=== PATIENT | male | born 2000 | race Caucasian/White ===

== ENCOUNTER 2025-07-29 12:14 | Emergency (ER) | payer OTHER ==
[~2025-07-29 12:14] MED LIST: Iopamidol 300 61% 100 ML VIAL FS ONE
[2025-07-29] MEDS ORDERED: Ketorolac Tromethamine 30 MG (1 mL) VIAL ONE (13:33)
[2025-07-29 13:41] LABS: #Basophils Less than 0.03 10x3/uL (0.0-0.2); #Eosinophils 0.05 10x3/uL (0.0-0.5); #Monocytes 0.64 10x3/uL (0.0-1.1); #Neutrophils 4.52 10x3/uL (1.5-8.4); %Basophils 0.3 % (0.0-2.0); %Eosinophils 0.8 % (0.0-6.0); %Lymphocytes 19.4 % (18.0-47.0); %Monocytes 9.8 % (0.0-10.0); %Neutrophils 69.4 % (40.0-75.0); Hematocrit 44.7 % (38.8-50.0); Hemoglobin 15.1 g/dL (13.5-17.5); Mean Corpuscular Hemoglobin 29.8 pg (27.0-33.0); Mean Corpuscular Volume 88.3 fL (81.2-95.1); Platelet Count 226 10x3/uL (150-450); Red Blood Cell (RBC) Count 5.06 10x6/uL (4.32-5.72); White Blood Cell (WBC) Count 6.51 10x3/uL (3.5-10.5)
[2025-07-29 13:55] LABS: ALT (SGPT) 59 U/L (Less than 45); AST (SGOT) 56 U/L (11-34); Albumin 4.2 g/dL (3.1-4.5); Alkaline Phosphatase 44 U/L (40-110); Anion Gap 12 mmol/L (10-20); BUN (Urea Nitrogen) 9 mg/dL (8.9-20.6); Bilirubin, Total 1.3 mg/dL (0.3-1.2); Calc. Creatinine Clearance 0 mL/min (70-130); Calcium 8.9 mg/dL (7.8-10.44); Carbon Dioxide 24 mmol/L (22-29); Chloride 104 mmol/L (98-107); Globulin 2.6 g/dL (2.4-3.5); Glucose 111 mg/dL (70-105); Potassium 4.1 mmol/L (3.5-5.1); Sodium 136 mmol/L (136-145)
== END 2025-07-29 14:57 | disposition home or self-care (01) ==
LOC: CSHERS 12:14
DX: S02.5XXA Fracture of tooth (traumatic), initial encounter for closed fracture (principal); K04.7 Periapical abscess without sinus; F17.210 Nicotine dependence, cigarettes, uncomplicated; X58.XXXA Exposure to other specified factors, initial encounter
CPT/HCPCS: 70487; 80053; 85025; 96374; 96375; J0295; J1885; Q9967